=== PATIENT | female | born 1945 | race Caucasian/White ===

== ENCOUNTER 2019-05-28 05:52 | Inpatient (IN) | payer OTHER ==
[2019-05-14 11:04] LABS: URINE BILIRUBIN NEGATIVE (Negative); URINE BLOOD 2+ (Negative); URINE CLARITY CLEAR; URINE COLOR YELLOW; URINE GLUCOSE-RANDOM* NEGATIVE (Negative); URINE KETONES NEGATIVE (Negative); URINE LEUKOCYTES-REFLEX TRACE (Negative); URINE NITRITE-REFLEX NEGATIVE (Negative); URINE PROTEIN (DIPSTICK) NEGATIVE (Negative); URINE UROBILINOGEN 0.2 E.U./dl (0.2-1.0)
[2019-05-14 11:07] LABS: HEMATOCRIT 40.3 % (37.0-47.0); HEMOGLOBIN 13.2 gm/dL (12.0-15.0); MCH 30.8 pg (26.0-34.0); MCHC 32.9 g/dL (28.0-37.0); MCV 93.4 fL (80.0-100.0); RBC 4.31 mil/uL (4.20-5.00); RDW 13.4 % (10.5-14.5); WBC 6.5 thou/uL (4.0-11.0)
[2019-05-14 11:14] LABS: ALBUMIN 3.9 g/dL (3.4-5.0); CALCIUM 9.6 mg/dL (8.5-10.1); CREATININE 0.8 mg/dL (0.6-1.0); POTASSIUM 4.6 mmol/L (3.5-5.1)
[2019-05-14 11:22] LABS: PROTIME 9.5 Seconds (9.3-11.4)
[2019-05-14 11:34] LABS: BACTERIA-REFLEX None Seen /HPF (None Seen); CASTS None Seen /LPF (None Seen); CRYSTALS None Seen /LPF (None Seen); SQUAMOUS 0-3 Few /LPF (0-3); URINE RBC 3-10 Few /HPF (0-2); URINE WBC-REFLEX 0-5 Rare /HPF (0-5)
--- NOTE | 2019-05-15 08:27 | EKG ---
[place] [address] [facility] [address] [address] ELECTROCARDIOGRAM REPORT Name: LULÚ MAIN Room #: PRE IN ..#: [id number] Admission: Attend Phys: Manjit Maxwell MD Discharge: Date of : 47 Report #: [id number] THIS REPORT FOR: //name// [facility] Test Date: 2019-05-14 Test Time: 10:55:15 Pat Name: LULÚ MAIN Department: Room: Gender: F Quality Assurance Manager: siobhan : 1945 Requested By: Manjit Maxwell Order Number: [id number] MD: Ron Sellers Measurements Intervals [place] Rate: 72 P: 34 DC: 172 QRS: -13 QRSD: 88 T: -4 QT: 378 QTc: 414 Interpretive Statements Sinus rhythm Poor R wave progression Compared to ECG 06/24/2000 08:04:08 No significant changes Electronically Signed On 05-15-2019 8:27:00 ESTATE CONSERVATOR by Ron Sellers [email or web address] <ELECTRONICALLY SIGNED> By: Ron Sellers MD, [facility] 05/15/19 0827 1055 1055 Ron Sellers MD, FACC /EPI
[~2019-05-28] VITALS: Ht 154.9 cm; Wt 86.2 kg
--- NOTE | ~2019-05-28 | O ---
[facility] [place] [address] OPERATIVE REPORT Name: LULÚ MAIN Room #: 150-1 ADM IN M.R.#: [id number] Admission: 05/28/19 Attend Phys: Manjit Maxwell MD Discharge: Date of : 47 Report #: [id number] THIS REPORT FOR: //name// CC: Manjit Ramirez DATE OF SERVICE: 05/28/2019 PREOPERATIVE DIAGNOSIS: Right knee osteoarthritis. POSTOPERATIVE DIAGNOSIS: Right knee osteoarthritis. PROCEDURE: Right total knee arthroplasty using Navio robotic assistance. SURGEON: Manjit Maxwell MD. AGENCY OPERATOR: Manjula Dowling PA-C. INDICATIONS FOR AGENCY OPERATOR: Throughout the case, extensive retraction and manipulation of the knee was required. This was afforded to me by my assistant attorney general. ANESTHESIA: LMA with an adductor canal block. IMPLANTS: Colin and Nephew size 5 Oxinium Legion posterior stabilized femur, size 4 tibia, size 13 polyethylene and size 32 patella. TOURNIQUET TIME: 51 minutes. ESTIMATED BLOOD LOSS: 25 mL. COMPLICATIONS: None. SPECIMENS: None. CONDITION UPON LEAVING THE OPERATING ROOM: Stable. INDICATIONS FOR PROCEDURE: The patient is a 74-year-old female with severe right knee osteoarthritis. She had failed conservative measures for this. After discussion with her, she elected for right total knee arthroplasty. DESCRIPTION OF PROCEDURE: Risks, benefits, alternatives, complications were discussed in detail with the patient including but not limited to risk of anesthesia, risk of damage to nerves, arteries, blood vessels, risk for infection, bleeding, risk for continued knee pain, need for reoperation. Informed consent was obtained from the patient. Right knee was appropriately marked in the preoperative holding area. IV Ancef was given for preoperative [address] [address] OPERATIVE REPORT Name: LULÚ MAIN Room #: 150-1 ADM IN M.R.#: [id number] Admission: 05/28/19 Attend Phys: Manjit Maxwell MD Discharge: Date of : 47 Report #: [id number] antibiotics. Adductor canal block was placed by Anesthesia. She was brought to the operating room and placed in supine position on operating room table. LMA anesthesia was induced without complication. Tourniquet was placed on the right thigh. Right lower extremity was prepped and draped in normal sterile fashion. Timeout was performed, properly identifying the patient and procedure as well as the instrumentation and implants. All in the operating room were in agreement. Right lower extremity was exsanguinated, tourniquet was inflated. Tourniquet time was 73 minutes. Standard midline approach to knee was made with 10 blade through the skin. Dissection was taken down sharply to the fascia and deep flaps were developed medially and laterally. Fresh 10 blade was used to make a medial parapatellar arthrotomy and the knee was inspected. There was severe tricompartmental osteoarthritis. It was decided to proceed with total knee arthroplasty. ACL and PCL were removed sharply. Reference pins were placed in the femur and the tibia. The knee was then digitally mapped using the Stellar robotic system. We sized a size 5 femur with a size 4 tibia and a size 11 spacer. After the acceptance of the intraoperative plan, the distal femoral cut was made with the Navio bradley. The 4-in-1 cutting block size 5 was placed. Anterior, posterior and chamfer cuts were made. Attention was then turned to the tibia. Remainder of the menisci removed with Bovie cautery. The tibia resection guide was pinned in place using the Navio for placement and tibial resection was made. Flexion and extension gaps were then checked and found to have good balance in flexion and extension both medially and laterally with the size 12 spacer. After this, tibia was sized, found to be a size 4. Size 4 tibial trial was placed, pinned and punched. A size 5 femoral trial was placed and box cut was made. This was then trialed with a size 12 and then a size 13 polyethylene, size 13 polyethylene demonstrated 1-2 millimeter of laxity medially and laterally throughout range of motion. A 9 mm was resected from the posterior surface of the patella and a size 32 patellar trial button was placed. Knee was taken through range of motion, found to have good patellar tracking. After this, trial components were removed. Bony ends were thoroughly irrigated with normal saline. Final size 4 tibia, size 5 Legion Oxinium posterior stabilized femur and a size 32 patella were cemented in place using standard cementation techniques. While the cement cured, a periarticular injection consisting of morphine, ropivacaine, epinephrine, Toradol was placed around the knee joint capsule. After the cement cured, the tourniquet was deflated. Hemostasis was obtained with Bovie cautery. Final size 13 polyethylene was placed. One gram of vancomycin was placed deep in the joint. Fascia was closed with 0 Vicryl, skin was closed with 2-0 Vicryl, 3-0 Monocryl. Dermabond and a STAR dressing was applied. The patient tolerated this procedure well and went to recovery room under care of anesthesia postoperatively. By: [id number] Manjit Maxwell MD /nt
[~2019-05-28 05:52] MED LIST: ASPERCREME1 EACH TOP; HAIR, SKIN AND1 EAC2 PO; IRON236 MG PO; LISINOPRIL40 MG PO; MAGNESIUM250 M1 PO; MELOXICAM7.5 MG PO; NORVASC5 MG PO; OMEPRAZOLE40 MG PO; ROSUVASTATIN CA20 MG PO; TOVIAZ8 MG PO; VITAMIN D35000 UNI2 PO; VITAMIN E1000 UNIT PO; ZANAFLEX2 MG PO; ZETIA10 MG PO
[2019-05-28 07:12] VITALS: BP 110/61
[2019-05-28 12:34] VITALS: BP 111/65
--- NOTE | 2019-05-28 14:48 | NUR ---
INITIAL ASSESSMENT: Pt evaluated for d/c planning needs. Reviewed chart and spoke with PT, nurse, pt and pt's sister. Pt is alert and oriented. Pt lives in house with spouse and was independent with ADL's prior to admission to the hospital. Pt has no DME and has not had home health in the past. Ordered walker from [employer], which will be delivered prior to d/c. Pt has outpatient PT arranged at [facility]. Pt plans on returning home on d/c from hospital. Will remain available to assist as needed.
--- NOTE | 2019-05-28 16:38 | NUR ---
ASSUMED CARE OF THE PT AT 1100. PT WAS UP TO BEDSIDE COMMODE AND WORKED WITH PT, WEAKNESS OCCURRED WHILE STANDING. PT HAS A LATEX ALLERGY. SCD'S, POLAR PACK AND STAR DRESSING IN PLACE. LAST BM 05/27. PT IS A FALL RISK, FALL PRECAUTIONS ARE IN PLACE. BED IN LOWEST POSITION AND CALL LIGHT IS WITHIN REACH. WILL CONTINUE TO MONITOR THE PT
[2019-05-28 16:58] VITALS: BP 123/62
[2019-05-28 19:22] VITALS: BP 118/59
--- NOTE | 2019-05-28 21:25 | NUR ---
1900 ASSUMED CARE OF PT AFTER BEDSIDE REPORT, PT RESTING IN BED ALERT AND ORIENTED, UP TO COMMODE WITH WALKER AND GAIT BELT MIN ASSIST, PT STATES NO PAIN AT THIS TIME. IV FLUSHED AND FLUIDS RUNNING PER DR ORDER, NO APPEARANCE OF ANXIETY. TAMEKA HOSE AND RAJESH WRAP IN PLACE NO BLEEDING, PEDAL PULSES PALPABLE, POLAR PACK AND STAR DRESSING IN PLACE. WILL CONTINUE WITH HOURLY ROUNDING, CLIENT IS ABLE TO CHANGE POSITION IN BED INDEPENDENTLY
[2019-05-29 03:55] VITALS: BP 102/57
[2019-05-29 05:31] LABS: HEMATOCRIT 35.5 % (37.0-47.0); HEMOGLOBIN 11.6 gm/dL (12.0-15.0); MCH 30.8 pg (26.0-34.0); MCHC 32.8 g/dL (28.0-37.0); MCV 93.7 fL (80.0-100.0); RBC 3.79 mil/uL (4.20-5.00); RDW 13.2 % (10.5-14.5); WBC 15.9 thou/uL (4.0-11.0)
[2019-05-29 07:32] VITALS: BP 103/76
[2019-05-29] MEDS ORDERED: ASPIR 8181 MG PO (11:57)
[2019-05-29] MEDS ORDERED: GABAPENTIN 100100 MG PO (11:57)
--- NOTE | 2019-05-29 12:57 | NUR ---
Assumed care ot pt at 0700. Pt a&ox4. Dressing c/d/i. Polar pack in place. TAMEKA hose and SCDs in place. Worked with physical therapy. Will discharge today when sister comes to pick her up. Call light within reach. Fall precautions in place.
[2019-05-29 14:11] VITALS: BP 103/76
--- NOTE | 2019-05-29 14:33 | NUR ---
PT IS IN GOOD CONDITON AFTER HAVING SURGERY ON RIGHT KNEE FOR OA. PT SAID SHE EXPERIENCED LITTLE PAIN WHEN GETTING UP TO WALK TO USE WALKER. SHE HAD NO PAIN WHILE SITTING IN BED. HER GOAL TODAY WAS TO GO HOME, WHICH SHE HAS BEEN DISCHARGED TO GO HOME NOW WITH A SCRIPT FOR NORCO A PAIN MEDICATION, GABEPTIN FOR PAIN AND SLEEP AND ASPIRN TO DECREASE THE RISK OF CLOTS.
--- NOTE | 2019-05-29 14:46 | NUR ---
I have reviewed and concur with student documentation.
== END 2019-05-29 15:12 | disposition home or self-care (01) | DRG 470 ==
LOC: 4S 05:52 → TBA 05:52 → PRE 10:12 → 4S 11:44 → PRE 12:43 → ENTRNSPT 05-29 14:59 → EDTRNSPTSTS 05-29 15:03 → 4S 05-29 15:12
PROVIDERS: ADMIT Orthopaedic Surgery
PROC: 0SRC069 Replacement of Right Knee Joint with Oxidized Zirconium on Polyethylene Synthetic Substitute, Cemented, Open Approach (ICD-10-PCS; principal; 2019-05-28)
PROC: 8E0Y0CZ Robotic Assisted Procedure of Lower Extremity, Open Approach (ICD-10-PCS; principal; 2019-05-28)
DX: M17.11 Unilateral primary osteoarthritis, right knee (principal); Z88.2 Allergy status to sulfonamides; Z91.040 Latex allergy status
CPT/HCPCS: 10102; 50010; 50101; 50415; 50954; 51130; 51225; 51320; 52001; 53078; 53365; 54118; 56527; 56528; 57095; 57103; 57110; 57127; 57180; 64039; 70005

== ENCOUNTER 2020-01-08 11:56 | Emergency (ER) | payer OTHER ==
[~2020-01-08] VITALS: Ht 154.9 cm; Wt 79.4 kg
[~2020-01-08 11:56] MED LIST changes: +ASPIR 8181 MG PO; +GABAPENTIN 100100 MG PO
[2020-01-08 13:14] LABS: ABSOLUTE NEUTROPHILS 4.8 thou/uL (1.4-8.2); BASOPHILS 0.6 % (0.0-2.0); EOSINOPHILS 0.3 % (0.0-3.0); HEMATOCRIT 40.8 % (37.0-47.0); HEMOGLOBIN 14.1 gm/dL (12.0-15.0); LYMPHOCYTES 21.5 % (24.0-44.0); MCH 31.7 pg (26.0-34.0); MCHC 34.6 g/dL (28.0-37.0); MCV 91.8 fL (80.0-100.0); PLATELET COUNT 269 thou/uL (150-400); POLYS 67.6 % (36.0-66.0); RBC 4.45 mil/uL (4.20-5.00); RDW 13.5 % (10.5-14.5); WBC 7.1 thou/uL (4.0-11.0)
[2020-01-08 13:22] LABS: CALCIUM 10.1 mg/dL (8.5-10.1); CREATININE 0.8 mg/dL (0.6-1.0); POTASSIUM 3.4 mmol/L (3.5-5.1)
[2020-01-08 13:29] LABS: ALBUMIN 3.6 g/dL (3.4-5.0); TOTAL BILIRUBIN 0.4 mg/dL (0.2-1.0); TOTAL PROTEIN 6.4 g/dL (6.4-8.2)
[2020-01-08 13:32] LABS: URINE BILIRUBIN NEGATIVE (Negative); URINE BLOOD 2+ (Negative); URINE CLARITY CLEAR; URINE COLOR YELLOW; URINE GLUCOSE-RANDOM* NEGATIVE (Negative); URINE KETONES NEGATIVE (Negative); URINE NITRITE-REFLEX NEGATIVE (Negative); URINE PROTEIN (DIPSTICK) TRACE (Negative)
[2020-01-08 13:33] LABS: URINE LEUKOCYTES-REFLEX 2+ (Negative)
[2020-01-08 14:15] LABS: SQUAMOUS 0-3 Few /LPF (0-3)
[2020-01-08 14:16] LABS: CALCIUM OXALATE 0-3 Few /LPF (None Seen); TRANSITIONAL EPITHEL CELL 0-3 Few /LPF (None Seen); URINE RBC 0-2 Rare /HPF (0-2); URINE WBC-REFLEX 6-15 Few /HPF (0-5)
[2020-01-08 14:17] LABS: BACTERIA-REFLEX 1-9 Few /HPF (None Seen); CASTS None Seen /LPF (None Seen)
[2020-01-08] MEDS ORDERED: ONDANSETRON HCL4 M2 PO (14:36)
[2020-01-08] MEDS ORDERED: KEFLEX500 M1 PO (14:36)
[2020-01-08] MEDS ORDERED: TESSALON PERLE100 MG PO (14:36)
[2020-01-08 14:55] VITALS: BP 129/76
== END 2020-01-08 14:55 | disposition home or self-care (01) ==
LOC: ER 11:56
PROVIDERS: Physician Assistant
DX: J40 Bronchitis, not specified as acute or chronic (principal); N39.0 Urinary tract infection, site not specified; Z20.828 Contact with and (suspected) exposure to other viral communicable diseases; K21.9 Gastro-esophageal reflux disease without esophagitis; I10 Essential (primary) hypertension; E78.5 Hyperlipidemia, unspecified; Z90.89 Acquired absence of other organs; Z90.711 Acquired absence of uterus with remaining cervical stump; Z98.51 Tubal ligation status; Z79.82 Long term (current) use of aspirin; Z79.899 Other long term (current) drug therapy; Z91.048 Other nonmedicinal substance allergy status; Z88.2 Allergy status to sulfonamides; Z91.040 Latex allergy status

== ENCOUNTER → 2020-02-27 | Outpatient (CLI) | payer OTHER ==
[~2020-02-27] MED LIST changes: +KEFLEX500 M1 PO; +ONDANSETRON HCL4 M2 PO; +TESSALON PERLE100 MG PO
== END ==
LOC: LAB 10:42
PROVIDERS: ATTEND Orthopaedic Surgery
DX: Z01.812 Encounter for preprocedural laboratory examination (principal); Z20.828 Contact with and (suspected) exposure to other viral communicable diseases

== ENCOUNTER 2020-03-03 08:30 | Observation (INO) | payer OTHER ==
[2020-02-19 13:15] LABS: HEMATOCRIT 38.4 % (37.0-47.0); HEMOGLOBIN 12.8 gm/dL (12.0-15.0); MCH 31.3 pg (26.0-34.0); MCHC 33.4 g/dL (28.0-37.0); MCV 93.7 fL (80.0-100.0); RBC 4.09 mil/uL (4.20-5.00); RDW 13.6 % (10.5-14.5); URINE BILIRUBIN NEGATIVE (Negative); URINE BLOOD 1+ (Negative); URINE CLARITY CLEAR; URINE COLOR YELLOW; URINE GLUCOSE-RANDOM* NEGATIVE (Negative); URINE KETONES NEGATIVE (Negative); URINE LEUKOCYTES-REFLEX NEGATIVE (Negative); URINE NITRITE-REFLEX NEGATIVE (Negative); URINE PROTEIN (DIPSTICK) NEGATIVE (Negative); URINE UROBILINOGEN 0.2 E.U./dl (0.2-1.0); WBC 6.9 thou/uL (4.0-11.0)
[2020-02-19 13:24] LABS: BACTERIA-REFLEX None Seen /HPF (None Seen); CASTS None Seen /LPF (None Seen); CRYSTALS None Seen /LPF (None Seen); SQUAMOUS 0-3 Few /LPF (0-3); URINE RBC 0-2 Rare /HPF (0-2); URINE WBC-REFLEX 0-5 Rare /HPF (0-5)
[2020-02-19 13:29] LABS: ALBUMIN 3.7 g/dL (3.4-5.0); CALCIUM 9.9 mg/dL (8.5-10.1); POTASSIUM 4.7 mmol/L (3.5-5.1)
[2020-02-19 13:30] LABS: PROTIME 10.1 Seconds (9.3-11.4)
[~2020-03-03] VITALS: Ht 157.5 cm; Wt 80.7 kg
[2020-03-03] VITALS (7 sets, daily range): BP systolic 112–134; BP diastolic 67–86
--- NOTE | ~2020-03-03 | O ---
[facility] [place] [address] OPERATIVE REPORT Name: LULÚ MAIN Room #: 443-P [facility] IN M.R.#: [id number] Admission: 03/03/20 Attend Phys: Manjit Maxwell MD Discharge: Date of : 47 Report #: [id number] THIS REPORT FOR: cc: Eliezer Ramirez MD, Stanley P. MD Abraham,Manjit Cline MD ~ CC: Manjit Ramirez DATE OF SERVICE: 03/03/2020 PREOPERATIVE DIAGNOSIS: Left knee osteoarthritis. POSTOPERATIVE DIAGNOSIS: Left knee osteoarthritis. PROCEDURE: Left total knee arthroplasty using Navio robotic assistant manager pt. SURGEON: Manjit Maxwell MD. PERFORMING ARTS ROAD MANAGER: Manjula Dowling PA-C. INDICATIONS FOR PERFORMING ARTS ROAD MANAGER: Throughout the case, extensive retraction and manipulation of the knee was required. This was afforded to me by my assistant manager pt. ANESTHESIA: LMA with an adductor canal block. IMPLANTS: Colin and Nephew size 5, Journey II BCS cobalt chrome femur, size 3 tibia, size 12 polyethylene and size 32 patella. TOURNIQUET TIME: 50 minutes. ESTIMATED BLOOD LOSS: 25 mL COMPLICATIONS: None. SPECIMENS: None. CONDITION UPON LEAVING THE OPERATING ROOM: Stable. INDICATIONS FOR PROCEDURE: The patient is a 75-year-old female with left knee osteoarthritis. She had failed conservative measures for this and after discussion with her, she elected for left total knee arthroplasty. DESCRIPTION OF PROCEDURE: Risks, benefits, alternatives, complications were discussed in detail with the patient including but not limited to risk of anesthesia, risk of damage to nerves, arteries, blood vessels, risk for [facility] [address] [place] [address] OPERATIVE REPORT Name: LULÚ MAIN Room #: 443-P ADM IN M.R.#: [id number] Admission: 03/03/20 Attend Phys: Manjit Maxwell MD Discharge: Date of : 47 Report #: [id number] infection, bleeding, risk for continued knee pain, need for reoperation. Informed consent was obtained from the patient. Left knee was appropriately marked in the preoperative holding area. IV Ancef was given for preoperative antibiotics. She was brought to the operating room and placed in the supine position on the operating room table. LMA anesthesia was induced without complication. Tourniquet was placed on the left thigh. Left lower extremity was prepped and draped in normal sterile fashion. Timeout was performed properly identifying the patient and procedure as well as the instrumentation and implants. All in the operating room were in agreement. Left lower extremity was exsanguinated, tourniquet was inflated. Tourniquet time was 50 minutes. Standard midline approach to knee was made with 10 blade through the skin. Dissection was taken down sharply to the fascia and the medial parapatellar arthrotomy was made with a fresh #10 blade and the knee was inspected and found to have severe tricompartmental osteoarthritis. ACL and PCL were removed sharply. Reference pins were placed in the femur and the tibia and the knee was then digitally mapped using the SelStor robotic system. Intraoperative plan was made and we sized the size 5 femur with a size 3 tibia and a 10 spacer. After acceptance of the intraoperative plan, the distal femoral cut was made with the Navio bur. Distal femoral cutting block was pinned in place and chamfer cuts were made. After this, attention was turned to the tibia. Remainder of the menisci removed with Bovie cautery. Tibial resection guide was pinned in place using the Navio for placement and tibial resection was made. Flexion and extension gaps were then checked and found to have good balance medially and laterally in flexion and extension. Tibia was sized, found to be a size 3. A size 3 tibial trial was placed, pinned and punched. Size 5 femoral trial was placed and the box cut was made. This was then trialed with a size 10 up to a size 12 polyethylene and size 12 demonstrated 1-2 mm of laxity medially and laterally throughout range of motion of the knee. A 9 mm was resected from the posterior surface of the patella and a size 32 patellar trial button was placed. Knee was taken through range of motion, found to be stable, found to have good patellar tracking. Trial components were removed. Bony ends were thoroughly irrigated with normal saline. A final size 3 tibia, size 5 Journey II BCS cobalt chrome femur and a size 32 patella were cemented in place using standard cementation techniques. While the cement cured, a periarticular injection consisting of morphine, ropivacaine, epinephrine and Toradol was placed around the knee joint capsule. After the cement cured, tourniquet was deflated. Hemostasis was obtained with Bovie cautery. A final size 12 polyethylene was placed. A gram of vancomycin was placed deep in the joint. Fascia was closed with 0 Vicryl, skin was closed with 2-0 Vicryl, 3-0 Monocryl. Dermabond and a STAR dressing was applied. The patient tolerated this procedure well and went to recovery room under care of anesthesia postoperatively. By: [id number] Manjit Maxwell MD /nt
--- NOTE | 2020-03-03 16:41 | NUR ---
PATIENT ADMITTED FROM OR WITH LEFT TOTAL KNEE REPLACEMENT, STAR DRESSING, KNEE HIGH TAMEKA HOSE, SCD'S, POLAR CARE IN PLACE. PATIENT HAD A BLOCK, NO C/O PAIN. PATIENT USED BEDPAN, URINATED W/O DIFFICULTY. NO C/O NAUSEA AT THIS TIME. REGULAR DIET ORDERED FOR DINNER. PATIENT HAS RIGHT HAND IV, STARTED D51/2 NS AT 75CC/HR. SISTER AT BEDSIDE. ADMISSION COMPLETED, REPORT GIVEN TO MAYRA/RN.
--- NOTE | 2020-03-04 02:38 | NUR ---
ASSUMED CARE OF PT @2200. PT RESTING WELL IN BED. IV INTACT WITH FLUIDS INFUSING. VOIDING VIA BEDPAN. ON 2L OF O2. SCD'S, TEDHOSE, POLAR PACK IN PLACE. FALL PREC MANTAINED NO C/O N/V. WILL CONT WITH POC TILL EOS.
[2020-03-04 04:20] VITALS: BP 111/75
[2020-03-04 05:36] LABS: HEMATOCRIT 31.6 % (37.0-47.0); HEMOGLOBIN 10.7 gm/dL (12.0-15.0); MCH 31.7 pg (26.0-34.0); MCHC 33.8 g/dL (28.0-37.0); MCV 93.8 fL (80.0-100.0); RBC 3.36 mil/uL (4.20-5.00); RDW 13.6 % (10.5-14.5); WBC 13.1 thou/uL (4.0-11.0)
[2020-03-04 07:14] VITALS: BP 103/63
--- NOTE | 2020-03-04 09:29 | NUR ---
ASSESSMENT: CM REVIEWED CHART AND SPOKE WITH PT. PT IS ALERT AND ORIENTED X4. PT REPORTS THAT SHE LIVES IN A HOUSE WITH HER SPOUSE. PT REPORTS ONE STEP TO ENTER THE HOME AND ONE STEP TO USE INSIDE. PT REPORTS THAT SHE HAS A BASEMENT BUT HAS NO NEED TO GO DOWN THERE. PT REPORTS HAVING A CANE AND WALKER AT HOME TO USE FOR ASSISTANCE. PT STATES BEING INDEPENDENT WITH ADLS AND HAS A GRAB BAR AND SHOWER CHAIR. PT REPORTS SHE HAS OUTPATIENT THERAPY ARRANGED AT [facility]. PT IS TO WORK WITH [facility] AND DETERMINE IF SHE IS SAFE FOR DISCHARGE HOME TODAY. CM WILL CONTINUE TO FOLLOW TO ASSIST NEEDED.
[2020-03-04 10:05] VITALS: BP 103/63
[2020-03-04] MEDS ORDERED: COLACE100 MG PO (12:22)
[2020-03-04] MEDS ORDERED: MIRALAX119 GM PO (12:22)
[2020-03-04] MEDS ORDERED: BAYER CHEWABLE81 MG PO (12:23)
--- NOTE | 2020-03-04 14:34 | NUR ---
Assumed care of pt. at 0700. Pt. was calm and cooperative. Pt. complained of N/V earlier in the morning. She said she did not presently feel N/V, but did not want the pills in fear that she would vomit them up. Medication was held. Pt. did not experience any N/V and was cleared for discharge by PT. Pt. waited for ride to arrive at hospital. Pt. experienced V/N at lunch. Dr. Cabral notified, said if she could hold down sprite and crackers to still discharge. Pt. was able to do so. Pt. discharged, received discharge teaching and left with all belongings.
== END 2020-03-04 14:43 | disposition home or self-care (01) ==
LOC: TBA 08:30 → 4S 08:30 → PRE 09:21 → 4S 14:36
PROVIDERS: ADMIT Orthopaedic Surgery; ATTEND Orthopaedic Surgery
DX: M17.12 Unilateral primary osteoarthritis, left knee (principal); M17.11 Unilateral primary osteoarthritis, right knee; I10 Essential (primary) hypertension; K21.9 Gastro-esophageal reflux disease without esophagitis; Z79.899 Other long term (current) drug therapy
CPT/HCPCS: 27447; S2900; 10102; 50010; 50101; 50415; 50954; 51130; 51225; 51320; 53000; 53078; 54118; 56527; 56528; 57095; 57103; 57110; 57127; 57180; 58239; 62110; 62900; 64042; 70005